=== PATIENT | female | born 1960 | race Hispanic/Latino ===

== ENCOUNTER → 2024-10-19 | Outpatient (CLI) | payer OTHER ==
--- NOTE | 2024-10-20 07:17 | HMCIMG ---
EXAM: CT Cardiac calcium scoring. CLINICAL HISTORY: Screening. TECHNIQUE: Thin collimated axial CT cardiac images were obtained. A CT scan is done according to ALARA (As Low As Reasonably Achievable). CONTRAST: None. COMPARISON: None provided. FINDINGS: Calcium Score: VESSEL Number of lesions Volume mm3 Equi. Mass/mg Calcium score LM 0 0 - 0 LAD 2 44.7 - 80.2 LCX 1 25.8 - 23.4 RCA 0 0 - 0 Total 3 70.5 - 103.6 IMPRESSION: The observed calcium score of 103.6 is at percentile 90 for subjects of the same age, gender, and race/ethnicity who are free of clinical cardiovascular disease and treated diabetes. /[place]
== END | disposition home or self-care (01) ==
LOC: RAH 14:58
PROVIDERS: ATTEND Internal Medicine Cardiovascular Disease
DX: Z13.6 Encounter for screening for cardiovascular disorders (principal)
CPT/HCPCS: 75571